=== PATIENT | male | born 1955 | race Caucasian/White ===

== ENCOUNTER 2020-02-07 20:16 | Emergency (ER) | payer OTHER ==
[~2020-02-07] VITALS: Ht 172.7 cm; Wt 78.0 kg
--- NOTE | 2020-02-07 20:55 | NUR ---
UNABLE TO START AN IV LINE ON THE PT DUE TO HARD STICK. DR NEVAREZ MADE AWARE. PER OK TO HOLD ON TO THE HEP LOCK FOR NOW
[2020-02-07] MEDS ORDERED: IV NS 0.9% 1,000 ML IV ONE (21:00)
[2020-02-07] MEDS ORDERED: LIDOCAINE HCL/MPF 1% 30 ML VIAL IJ ONE (21:45)
[2020-02-07] MEDS ORDERED: ONDANSETRON 4 MG TAB.RAPDIS ONE (21:50)
[2020-02-07] MEDS ORDERED: HYDROCODONE/APAP 5/325MG TABLET ONE (21:50)
--- NOTE | 2020-02-07 21:55 | NUR ---
DR NEVAREZ AT BED SIDE FOR LACERATION CARE
[2020-02-07] MEDS ORDERED: HYDROCODONE/APAP 5/325MG TABLET PO ONE (22:00)
[2020-02-07] MEDS ORDERED: LIDOCAINE 1% INJ 50 ML MDV IJ ONE (22:00)
[2020-02-07] MEDS ORDERED: ONDANSETRON 4 MG TAB.RAPDIS SL ONE (22:00)
[2020-02-07] MEDS ORDERED: AMOXICILLIN TRIHYDRATE 500 MG CAPSULE PO ONE (22:30)
[2020-02-07] MEDS ORDERED: BACITRACIN ZINC OINT PACKET 1 EA PACKET TP ONE (22:30)
--- NOTE | 2020-02-07 22:35 | NUR ---
called [facility] for ct read
[2020-02-07] MEDS ORDERED: TDAP [DIPH/PERTUSSIS/TET] 0.5 ML VIAL IM ONE ×2 (22:54→23:00)
[2020-02-07] MEDS ORDERED: AMOXICILLIN TRIHYDRATE 250 MG CAPSULE ONE (22:54)
--- NOTE | 2020-02-08 00:03 | NUR ---
pt is medically stable for D/C. ambulatory w. steady gaits. Patient discharged to home in stable condition. Written and verbal after care instructions given. Patient verbalizes understanding of instruction. pt was provided w/ the CD of all CTs and was instructed to f/u with the ENT specialist he is reffered to.
[2020-02-08 00:15] VITALS: BP 105/72
== END 2020-02-08 00:19 | disposition home or self-care (01) ==
LOC: ER 20:16
DX: S02.2XXA Fracture of nasal bones, initial encounter for closed fracture (principal); S01.21XA Laceration without foreign body of nose, initial encounter; S01.81XA Laceration without foreign body of other part of head, initial encounter; Z98.890 Other specified postprocedural states; W18.09XA Striking against other object with subsequent fall, initial encounter; Y93.89 Activity, other specified; Y92.89 Other specified places as the place of occurrence of the external cause; Y99.8 Other external cause status
CPT/HCPCS: 12014; 36415; 70450; 70486; 72125; 84484; 90471; 90715; 93005; 99285; J3490; J7030; Q0162

== ENCOUNTER 2020-03-04 16:53 | Inpatient (IN) | payer OTHER ==
[~2020-03-04] VITALS: Ht 170.2 cm; Wt 77.1 kg
--- NOTE | 2020-03-04 17:08 | NUR ---
PILAR FROM BOARD AND CARE TO ER BED 10. AWAKE, ALERT BUT INTOXICATED. BROUGHT IN FOR GROUND LEVEL FALL. PER EMS REPORT, PT HAS BEEN DRINKING, WENT TO THE BATHROOM, LEND ON THE GLASS SHOWER DOOR, GLASS BROKE WHILE HE IS LEANING CAUSE A FALL. NOTED LACERATION ON OCCIPITAL AREA, R SHUOLDER, L ANKLE AND L CALF. NOTED ABRASSIONS ON L UPPER EXTREMETY. ALSO NOTED A PURPLISH DISCOLORATION ON L FLANK. DENIES ANY KO. PROVIDER AT BEDSIDE DOING EVAL. AWAITN ORDERS. EMT AT BEDSIDE FOR WOUND CLEANING
[2020-03-04] MEDS ORDERED: FOLI0.4T2 PO (17:09)
[2020-03-04] MEDS ORDERED: PANT40TA2 PO (17:09)
[2020-03-04] MEDS ORDERED: METO25TA20 PO (17:09)
[2020-03-04] MEDS ORDERED: FERR325T23 PO (17:09)
[2020-03-04] MEDS ORDERED: LISI-603 PO (17:09)
[2020-03-04] MEDS ORDERED: MIRT45TA83 PO (17:09)
[2020-03-04] MEDS ORDERED: MULT-594 PO (17:09)
[2020-03-04] MEDS ORDERED: THIA100T70 PO (17:09)
[2020-03-04] MEDS ORDERED: LORA-259 PO (17:09)
[2020-03-04] MEDS ORDERED: LEVE500T9 PO (17:09)
[2020-03-04] MEDS ORDERED: IV NS 0.9% 1,000 ML BAG IV ONE (17:30)
[2020-03-04] MEDS ORDERED: BACITRACIN ZINC OINT PACKET 1 EA PACKET TP ONE ×2 (17:30→17:34)
[2020-03-04 18:10] LABS: HEMOGLOBIN 13.8 g/dL (13.5-17.5); MONOCYTES # (AUTO) 0.4 /CMM (0.1-1.30); MONOCYTES % (AUTO) 3.1 % (2.0-12.0)
[2020-03-04 18:12] LABS: BASOPHILS # (AUTO) 0.1 /CMM (0.0-0.2)
[2020-03-04 18:17] LABS: BASOPHILS % (AUTO) 1.2 % (0.0-2.0); EOSINOPHILS % (AUTO) 0.7 % (0.0-6.0); HEMATOCRIT 43 % (39-51); LYMPHOCYTES # (AUTO) 7.5 /CMM (0.8-4.8); LYMPHOCYTES % (AUTO) 63.6 % (20.0-44.0); MEAN CORPUSCULAR HGB CONC 32 g/dl (31.0-36.0); MEAN CORPUSCULAR VOLUME 88 fL (80-96); NEUTROPHILS # (AUTO) 3.7 /CMM (1.8-8.9); NEUTROPHILS % (AUTO) 31.4 % (43.0-81.0); PLATELET COUNT (AUTO) 295 /CMM (150-450); RED BLOOD CELL COUNT(AUTO) 4.89 MIL/uL (4.5-6.0); WHITE BLOOD COUNT (AUTO) 11.9 K/uL (4.3-11.0)
--- NOTE | 2020-03-04 18:17 | NUR ---
Patient keep removing his neck collor support multiple times .
--- NOTE | 2020-03-04 18:17 | NUR ---
Patient is difficultystick prior to obtained noted bruises to bilateeral arm ,lac to back Right upper back cleanse with saline .
[2020-03-04 18:22] LABS: CALCIUM, SERUM 8.6 mg/dL (8.5-10.1); CREATININE 0.9 mg/dL (0.6-1.3); POTASSIUM 4.4 mmol/L (3.5-5.1)
[2020-03-04 18:33] LABS: ALBUMIN 3.7 g/dL (3.4-5.0); BILIRUBIN,DIRECT 0.2 mg/dL (0.0-0.2); BILIRUBIN,TOTAL 0.4 mg/dL (0.2-1.0); TOTAL PROTEIN, SERUM 8.1 g/dL (6.4-8.2)
--- NOTE | 2020-03-04 19:13 | NUR ---
Provider aware no heplock @ this time .
--- NOTE | 2020-03-04 19:15 | NUR ---
TOOK OVER PT CARE. PT ON MONITOR AND PULSE OX. VSS. PER PREVIOUS NURSE CONCRETE PAVING MACHINE OPERATOR AWARE OF NURSE UNABLE TO START A LINE. WILL CONTINUE TO MONITOR PT.
--- NOTE | 2020-03-04 19:30 | NUR ---
PT REQUESTING TO URINATE. URINAL GIVEN TO PT. VSS.
[2020-03-04 19:41] LABS: EOSINOPHILS % (MANUAL) 1 % (0-4); LYMPHOCYTES % (MANUAL) 50 % (16-48); MONOCYTES % (MANUAL) 4 % (0-11.0); NEUTROPHILS % (MANUAL) 45 (42-76)
--- NOTE | 2020-03-04 20:20 | NUR ---
ATTEMPTED TO AMBULATE PATIENT, UNSTEADY AND UNABLE TO STAND AT THIS TIME. PAOLA GUZMÁN MADE AWARE
--- NOTE | 2020-03-04 23:18 | NUR ---
PT REMAINS IN BED RESTING. VSS.
--- NOTE | 2020-03-04 23:19 | NUR ---
PT REFUSING TYLENOL.
--- NOTE | 2020-03-04 23:21 | NUR ---
Ramesh davon in ED - 03/04/20 at 2325 by DONALD ATTEMPTED TO AMBULATE PT, HE REFUSED, STATED HE GETS TOO DIZZY.
--- NOTE | 2020-03-04 23:25 | NUR ---
ATTEMPTED TO AMBULATE PT, HE REFUSED STATING HE GETS TOO DIZZY.
[2020-03-04] MEDS ORDERED: ACETAMINOPHEN 325 MG TABLET PO ONE (23:30)
--- NOTE | 2020-03-04 23:30 | NUR ---
PATIENT REFUSED TYLENOL MEDICATION.
--- NOTE | 2020-03-04 23:38 | NUR ---
UNABLE TO FIND CONTACT INFORMATION OF PATIENT'S BOARD AND CARE FACILITY
--- NOTE | 2020-03-05 00:08 | NUR ---
ATTEMPTED TO CONTACT PT'S BROTHER (ANH [phone]) NO ANSWER, LEFT MESSAGE.
--- NOTE | 2020-03-05 01:51 | NUR ---
PT RESTING IN BED COMFORTABLY. VSS.
--- NOTE | 2020-03-05 06:23 | NUR ---
PT C/O HEADACHE, AWARE
--- NOTE | 2020-03-05 06:31 | NUR ---
NOTED TACHYCARDIA, MD AWARE
[2020-03-05] MEDS ORDERED: ACETAMINOPHEN ES 500 MG TABLET ONE (06:47)
[2020-03-05] MEDS ORDERED: ACETAMINOPHEN ES 500 MG TABLET PO ONE (07:00)
--- NOTE | 2020-03-05 07:09 | NUR ---
called lab regarding covid swab
[2020-03-05] MEDS ORDERED: LORAZEPAM INJ 2 MG/ML VIAL ONE (07:20)
--- NOTE | 2020-03-05 07:22 | NUR ---
ENDORSEMENT RECEIVED FROM JIMMY DESAI FOR RO. PATIENT IN BED AWAKE, HOOKED TO MONITOR. VSS. WILL CONTINUE TO MONITOR ACCORDINGLY
--- NOTE | 2020-03-05 07:24 | NUR ---
PT HARD STICK PER VERBAL MD ORDER, ADMINISTERED ATIVAN 2MG IM X1 NOW RD
[2020-03-05] MEDS ORDERED: LORAZEPAM INJ 2 MG/ML VIAL IV ONE (07:30)
[2020-03-05] MEDS ORDERED: IV NS 0.9% 1,000 ML BAG IV ONE (07:30)
--- NOTE | 2020-03-05 08:55 | NUR ---
CALLED NURSING SUP FOR TELE BED.
--- NOTE | 2020-03-05 09:53 | NUR ---
ROOM 108
--- NOTE | 2020-03-05 09:58 | NUR ---
REPORT GIVEN TO BREANNA DESAI OF TELE UNIT
--- NOTE | 2020-03-05 10:10 | NUR ---
DR HERRERA AT BEDSIDE
[2020-03-05 11:00] VITALS: BP 154/78
--- NOTE | 2020-03-05 11:00 | NUR ---
RN MS1 PATIENT ADMITTED TO [facility] UNIT PATIENT ALERT AND ORIENTED X4. PATIENT IS AWARE OF WHAT IS GOING ON PATIENT CAME IN FOR ETOH WITHDRAWAL PATENT HAS HX OF FALLS . ON EXTERNAL MONITOR PATIENT A FLUTTER. NO SOB , NO PAIN , NO ACUTE RESPIRATORY DISTRESS AT THIS TIME . PATIENT IS FALL RISK , BED ALARM ON . PATIENT ALSO ALLERGIC TO PEANUTS WITH ALLERGY BAND ION PATIENT . PATIENT HAS BROKEN FACE . PATIENT HAS ABRASIONS ON THE FACE AND ON THE ARMS . PATIENT ON REGULAR DIET. WITH L HAND 22 . PATENT AND IN TACT NO SIGNS OF INFECTION. OR INFILTRATION BED LOCKED LOWEST POSITION CALL LIGHT WITH IN REACH ALL SAFETY MEASURES IMPLEMENTED PER HOSPITAL POLICY
[2020-03-05] MEDS ORDERED: Z GUARD REMEDY 2 OZ OINT TP PRN (11:30)
[2020-03-05] MEDS ORDERED: MAGNESIUM HYDROXIDE 30 ML UDC PO PRN (11:30)
[2020-03-05] MEDS ORDERED: MAG HYDROX/AL HYDROX/SIMETH 30 ML UDC PO PRN (11:30)
[2020-03-05] MEDS ORDERED: ACETAMINOPHEN 325 MG TABLET PO PRN (11:30)
[2020-03-05] MEDS ORDERED: ONDANSETRON HCL/PF 4 MG/2 ML VIAL IVP PRN (11:30)
[2020-03-05 12:00] VITALS: BP 163/80
[2020-03-05] MEDS: IV NS 0.9% 1,000 ML IV SCH ×2 (12:19→23:07)
[2020-03-05] MEDS: ENOXAPARIN SODIUM 40 MG/0.4 ML DISP.SYRIN SQ SCH (12:23)
[2020-03-05] MEDS: CHLORDIAZEPOXIDE HCL 5 MG CAPSULE PO SCH ×2 (13:21→17:32)
[2020-03-05] MEDS: LORAZEPAM INJ 2 MG/ML VIAL IV PRN ×3 (14:01→22:59)
[2020-03-05] MEDS: FERROUS SULFATE (325 MG) 325 MG/TAB TABLET PO SCH (17:32)
[2020-03-05] MEDS: METOPROLOL TARTRATE 25 MG TABLET PO SCH (17:32)
--- NOTE | 2020-03-05 19:01 | NUR ---
RN TELE1 ALERT AND ORIENTED X4. PATIENT IS AWARE OF WHAT IS GOING ON PATIENT CAME IN FOR ETOH WITHDRAWAL PATENT HAS HX OF FALLS . ON EXTERNAL MONITOR PATIENT A FLUTTER. NO SOB , NO PAIN , NO ACUTE RESPIRATORY DISTRESS AT THIS TIME . PATIENT IS FALL RISK , BED ALARM ON . PATIENT ALSO ALLERGIC TO PEANUTS WITH ALLERGY BAND ION PATIENT . PATIENT HAS BROKEN FACE . PATIENT HAS ABRASIONS ON THE FACE AND ON THE ARMS . PATIENT ON REGULAR DIET. WITH L HAND 22 . PATENT AND IN TACT NO SIGNS OF INFECTION. OR INFILTRATION BED LOCKED LOWEST POSITION CALL LIGHT WITH IN REACH ALL SAFETY MEASURES IMPLEMENTED PER HOSPITAL POLICY
[2020-03-05 20:00] VITALS: BP 138/89
--- NOTE | 2020-03-05 20:23 | NUR ---
TELE/RN RECEIVED PATIENT AWAKE, ALERT, ORIENTED, COMFORTABLE, NO C/O PAIN, NO DISTRESS NOTED, FALL AND SEIZURE PRECAUTIONS PER PROTOCOL, CALL LIGHT IN REACH, NEEDS ATTENDED, WILL MONITOR.
--- NOTE | 2020-03-05 23:04 | NUR ---
TELE/RN PATIENT IS ANXIOUS AND VERBALIZED BEING ANXIOUS WELL, ATIVAN 1 MG IVP WAS GIVEN ORDERED. WILL MONITOR.
[2020-03-06] VITALS: BP 133/78
--- NOTE | 2020-03-06 03:47 | NUR ---
TELE/RN PATIENT IS SLEEPING AT THIS TIME, APPEAR COMFORTABLE, NO SIGNS OF DISTRESS NOTED, CALL LIGHT IN REACH, WILL CONTINUE TO MONITOR.
[2020-03-06 04:00] VITALS: BP 131/70
[2020-03-06] MEDS: LORAZEPAM INJ 2 MG/ML VIAL IV PRN (04:14)
--- NOTE | 2020-03-06 04:18 | NUR ---
TELE/RN PATIENT IS AWAKE, ANXIOUS, GETTING OUT OF BED WITHOUT CALLING FOR HELP, VERY HIGH FALL RISK, ATIVAN 1 MG IV WAS GIVEN ORDERED. WILL MONITOR.
--- NOTE | 2020-03-06 05:58 | NUR ---
TELE/RN C/O PAIN IN IV SITE, REMOVED IV, ATTEMPTED TO INSERT IN RT. HAND BUT UNSUCCESSFUL. STRUCTURAL STEEL WORKER HELPER UNABLE TO DRAW BLOOD WELL DUE TO HARD STICK. PATIENT IS AWAKE, ALERT, ORIENTED, CALM AND COMFORTABLE, ALL NEEDS ATTENDED AT THIS TIME, WILL CONTINUE TO MONITOR.
[2020-03-06] MEDS ORDERED: PANTOPRAZOLE 40 MG TABLET.DR PO SCH (07:30)
[2020-03-06] MEDS: IV NS 0.9% 1,000 ML IV SCH (07:30)
--- NOTE | 2020-03-06 07:30 | NUR ---
RN OPENING NOTE PATIENT IS AWAKE IN BED. PATIENT ALERT AND ORIENTED X4. ETOH WITHDRAWAL PATENT HAS HX OF FALLS . NO ACUTE RESPIRATORY DISTRESS OR SOB NOTED . PT HAS NO IV ACCESS AT THIS TIME. SAFETY MEASUREMENTS ARE IMPLEMENTED PER HOSPITAL POLICY. BED LOCKED LOWEST POSITION CALL LIGHT WITH IN REACH AND SIDE RAILS ARE UP X2.WILL CONTINUE TO MONITOR
[2020-03-06 07:44] LABS: CALCIUM, SERUM 8.8 mg/dL (8.5-10.1); CREATININE 0.7 mg/dL (0.6-1.3); MAGNESIUM 2.3 mg/dL (1.8-2.4); PHOSPHORUS 2.7 mg/dL (2.5-4.9); POTASSIUM 4.4 mmol/L (3.5-5.1)
[2020-03-06] MEDS: PANTOPRAZOLE 40 MG TABLET.DR PO SCH (07:50)
[2020-03-06 08:00] VITALS: BP 138/78
--- NOTE | 2020-03-06 08:09 | NUR ---
RN NOTES NO IV ACCESS WAITING FOR DR ORDER FOR MIDLINE. VERY HARD STICK
[2020-03-06] MEDS: THIAMINE HCL 100 MG TABLET PO SCH (08:19)
[2020-03-06] MEDS: FOLIC ACID 1 MG TABLET PO SCH (08:19)
[2020-03-06] MEDS: MULTIVITAMINS,THERAGRAN 1 UDTAB TABLET PO SCH (08:19)
[2020-03-06] MEDS: FERROUS SULFATE (325 MG) 325 MG/TAB TABLET PO SCH ×2 (08:19→16:16)
[2020-03-06] MEDS: METOPROLOL TARTRATE 25 MG TABLET PO SCH ×2 (08:20→16:16)
[2020-03-06] MEDS: ENOXAPARIN SODIUM 40 MG/0.4 ML DISP.SYRIN SQ SCH (08:21)
[2020-03-06] MEDS: CHLORDIAZEPOXIDE HCL 5 MG CAPSULE PO SCH ×2 (08:24→12:12)
[2020-03-06] MEDS ORDERED: Medication Not On Formulary EA (Multivitamins (Multivitamin) 1 EACH) PO SCH (09:00)
[2020-03-06] MEDS: LORAZEPAM 1 MG TABLET PO PRN ×2 (12:40→20:40)
--- NOTE | 2020-03-06 12:42 | NUR ---
RN NOTES PT IS ANXIOUS DR PANDA ORDERED ATIVAN PO. ADMINISTERED ATIVAN 1 MG
--- NOTE | 2020-03-06 12:47 | NUR ---
RN NOTES PT REFUSED SCD COMPRESSORS STATED HE IS FINE
[2020-03-06 15:46] LABS: BASOPHILS # (AUTO) 0.1 /CMM (0.0-0.2); EOSINOPHILS % (AUTO) 1.7 % (0.0-6.0); HEMATOCRIT 36 % (39-51); LYMPHOCYTES # (AUTO) 1.8 /CMM (0.8-4.8); LYMPHOCYTES % (AUTO) 38.7 % (20.0-44.0); MEAN CORPUSCULAR HGB CONC 33 g/dl (31.0-36.0); MEAN CORPUSCULAR VOLUME 86 fL (80-96); MONOCYTES # (AUTO) 0.4 /CMM (0.1-1.30); MONOCYTES % (AUTO) 8.4 % (2.0-12.0); NEUTROPHILS # (AUTO) 2.3 /CMM (1.8-8.9); NEUTROPHILS % (AUTO) 49.2 % (43.0-81.0); PLATELET COUNT (AUTO) 169 /CMM (150-450); RED BLOOD CELL COUNT(AUTO) 4.21 MIL/uL (4.5-6.0); WHITE BLOOD COUNT (AUTO) 4.7 K/uL (4.3-11.0)
--- NOTE | 2020-03-06 15:54 | NUR ---
RN NOTES PT HAS NO S/S OF RESPIRATORY DISTRESS OR SOB .
[2020-03-06 16:00] VITALS: BP 138/78
[2020-03-06] MEDS ORDERED: LORAZEPAM 1 MG TABLET PO STA (18:41)
--- NOTE | 2020-03-06 18:44 | NUR ---
RN NOTES PT IS VERY ANXIOUS PACING BACK AND FORTH. INFORMED DR PANDA. ORDERED VERBAL ORDER ONCE ATIVAN 1 MG POWAITING FOR VERIFICATION
--- NOTE | 2020-03-06 18:50 | NUR ---
RN CLOSING NOTE PATIENT IS AWAKE IN BED. PATIENT ALERT AND ORIENTED X4. ETOH WITHDRAWAL PATENT HAS HX OF FALLS . NO ACUTE RESPIRATORY DISTRESS OR SOB NOTED . PT HAS NO IV ACCESS AT THIS TIME.WILL BE DC TOMORROW SAFETY MEASUREMENTS ARE IMPLEMENTED PER HOSPITAL POLICY. BED LOCKED AND IN THE LOWEST POSITION .CALL LIGHT WITH IN REACH AND SIDE RAILS ARE UP X2.WILL ENDORSE TO PM NURSE FOR RO
[2020-03-06 20:00] VITALS: BP 142/78
--- NOTE | 2020-03-07 00:34 | NUR ---
MS-1/TANK HOUSE OPERATOR HELPER PT SLIGHTLY CONFUSED ATTEMPTS TO LEAVE HIS ROOM. REORIENTED TO PLACE TIME AND SITUATION. PT VERBALIZED UNDERSTANDING. PLACED BACK IN BED CALL LIGHT WITHIN REACH WILL CONTINUE TO MONITOR.
[2020-03-07 04:00] VITALS: BP 153/78
--- NOTE | 2020-03-07 05:35 | NUR ---
MS-1/BROADCAST DESIGNER PT REFUSING LAB DRAW. EDUCATED PT ON IMPORTANCE OF DAILY LABS. PT STILL REFUSING. WILL ENDORSE TO AM SHIFT.
--- NOTE | 2020-03-07 07:30 | NUR ---
RN OPENING NOTE PT AWAKE AND LYING IN BED, A/Ox2, BREATHING UNLABORED AND EVEN ON RA, NO SIGNS OF RESP DISTRESS OR SOB. PT IS AMBULATORY NO ASSIST. PT HAS MULTPILE SCRATCHES TO FACE AND NOSE, LT ARM. PT DOES NOT HAVE IV ACCESS. PT REFUSED MORNING LABS. PT SAFETY PRECAUTIONS IN PLACE- BED LOCKED AND IN LOWEST POSITION, CALL LIGHT WITHIN REACH, SR UP x2. WILL CONTINUE TO MONITOR.
[2020-03-07 08:00] VITALS: BP_SYST 132; BP_SYST 134; BP_SYST 180; BP_DIAS 66; BP_DIAS 72; BP_DIAS 73
[2020-03-07] MEDS: FERROUS SULFATE (325 MG) 325 MG/TAB TABLET PO SCH (08:37)
[2020-03-07] MEDS: THIAMINE HCL 100 MG TABLET PO SCH (08:37)
[2020-03-07] MEDS: LORAZEPAM 1 MG TABLET PO PRN (08:37)
[2020-03-07] MEDS: PANTOPRAZOLE 40 MG TABLET.DR PO SCH (08:37)
[2020-03-07] MEDS: FOLIC ACID 1 MG TABLET PO SCH (08:37)
[2020-03-07] MEDS: MULTIVITAMINS,THERAGRAN 1 UDTAB TABLET PO SCH (08:38)
[2020-03-07] MEDS: ENOXAPARIN SODIUM 40 MG/0.4 ML DISP.SYRIN SQ SCH (08:39)
[2020-03-07] MEDS: METOPROLOL TARTRATE 25 MG TABLET PO SCH (08:56)
[2020-03-07 08:57] VITALS: BP 132/72
[2020-03-07 09:42] LABS: CALCIUM, SERUM 9.2 mg/dL (8.5-10.1); CREATININE 0.9 mg/dL (0.6-1.3); MAGNESIUM 1.7 mg/dL (1.8-2.4); POTASSIUM 3.5 mmol/L (3.5-5.1)
--- NOTE | 2020-03-07 13:56 | NUR ---
LLOYD Engle informed this SW regarding patient's change in discharge plan. SW in communication with case management team assisting in a safe and proper discharge regarding this patient.
--- NOTE | 2020-03-07 14:30 | NUR ---
RN NOTE SPOKE WITH PT'S BROTHER CYNTHIA REGARDING WHERE PT WILL BE DISCHARGED TO. BROTHER IS NOW AWARE
--- NOTE | 2020-03-07 15:30 | NUR ---
MS RN NOTES PATIENT DISCHARGED TO BOARD AND CARE. DISCHARGE EDUCATIONS PROVIDED, VERBALIZED UNDERSTANDING. DISCHARGE PROTOCOL FOLLOWED. ALL BELONGINGS ACCOUNTED FOR. BELONGING LIST SIGNED. ID BAND REMOVED. PATIENTS BROTHER MADE AWARE OF PATIENTS DISCHARGE. PATIENT PROVIDED WITH TAXI. ESCORTED TO TAXI.
== END 2020-03-07 15:30 | disposition home or self-care (01) | DRG 201 ==
LOC: ER 16:57 → TELE1 03-05 09:55 → MEDSG1 03-06 12:42
PROVIDERS: ADMIT Internal Medicine; ATTEND Internal Medicine
DX: I48.0 Paroxysmal atrial fibrillation (principal); F10.239 Alcohol dependence with withdrawal, unspecified; F10.229 Alcohol dependence with intoxication, unspecified; Y90.9 Presence of alcohol in blood, level not specified; J44.9 Chronic obstructive pulmonary disease, unspecified; I10 Essential (primary) hypertension; E87.2 Acidosis; J32.0 Chronic maxillary sinusitis; E87.1 Hypo-osmolality and hyponatremia; S00.83XA Contusion of other part of head, initial encounter; S00.81XA Abrasion of other part of head, initial encounter; S40.211A Abrasion of right shoulder, initial encounter; S90.512A Abrasion, left ankle, initial encounter; S80.812A Abrasion, left lower leg, initial encounter; W18.39XA Other fall on same level, initial encounter; Y93.E1 Activity, personal bathing and showering; Y92.091 Bathroom in other non-institutional residence as the place of occurrence of the external cause; S02.2XXD Fracture of nasal bones, subsequent encounter for fracture with routine healing; W19.XXXD Unspecified fall, subsequent encounter; R29.6 Repeated falls; G62.9 Polyneuropathy, unspecified; Z79.899 Other long term (current) drug therapy
CPT/HCPCS: 36415; 70450-TC; 71045-TC; 72125-TC; 73610-TC; 80048-TC; 80076-TC; 83690-TC; 83735-TC; 84100-TC; 84484-TC; 85025-TC; 87081-TC; 93307-TC; A6403; C9803; G0378; J1650; J2060; J7030; L0172

== ENCOUNTER 2020-03-17 03:11 | Inpatient (IN) | payer OTHER ==
[~2020-03-17] VITALS: Ht 172.7 cm; Wt 73.5 kg
[~2020-03-17 03:11] MED LIST: FERR325T23 PO; FOLI0.4T2 PO; LEVE500T9 PO; LISI-603 PO; LORA-259 PO; METO25TA20 PO; MIRT45TA83 PO; MULT-594 PO; PANT40TA2 PO; THIA100T70 PO
--- NOTE | 2020-03-17 03:18 | NUR ---
PATIENT CAME TO ER BED 3 BIB RA C/O MIDSTERNAL CHEST PAIN THAT OCCURRED 1x HOUR PRINTING SUPPLIES SALES REPRESENTATIVE. PATIENT IS AAOX4, RECEIVED 324 MG OF ASPIRIN IN THE FIELD WITH 2x SPRAYS OF NITRO SPRAY. PATIENT STATES THAT HE DRANK 1 BOTTLE OF WHITE WINE IN THE MORNING. PATIENT IS BREATHING EVENLY AND UNLABORED ON ROOM AIR. CONNECTED TO THE MONITOR. PATIENT IS KEPT COMFORTABLE. WILL CONTINUE TO MONITOR.
--- NOTE | 2020-03-17 03:24 | NUR ---
ADDRESS [address] [place], [place] [id number]
[2020-03-17] MEDS ORDERED: IV NS 0.9% 1,000 ML BAG IV ONE (03:30)
[2020-03-17] MEDS ORDERED: ONDANSETRON HCL/PF 4 MG/2 ML VIAL IVP ONE (03:30)
[2020-03-17] MEDS ORDERED: LORAZEPAM INJ 2 MG/ML VIAL IV ONE ×2 (03:30→06:30)
[2020-03-17] MEDS ORDERED: LORAZEPAM INJ 2 MG/ML VIAL ONE ×2 (03:47→06:10)
[2020-03-17] MEDS ORDERED: ONDANSETRON HCL/PF 4 MG/2 ML VIAL ONE (03:47)
[2020-03-17 04:37] LABS: BASOPHILS # (AUTO) 0.1 /CMM (0.0-0.2); BASOPHILS % (AUTO) 0.7 % (0.0-2.0); EOSINOPHILS % (AUTO) 0.9 % (0.0-6.0); HEMATOCRIT 47 % (39-51); HEMOGLOBIN 15.3 g/dL (13.5-17.5); LYMPHOCYTES # (AUTO) 1.3 /CMM (0.8-4.8); LYMPHOCYTES % (AUTO) 16.3 % (20.0-44.0); MEAN CORPUSCULAR HGB CONC 33 g/dl (31.0-36.0); MEAN CORPUSCULAR VOLUME 89 fL (80-96); MONOCYTES # (AUTO) 0.3 /CMM (0.1-1.30); MONOCYTES % (AUTO) 4.4 % (2.0-12.0); NEUTROPHILS % (AUTO) 77.7 % (43.0-81.0); PLATELET COUNT (AUTO) 236 /CMM (150-450); RED BLOOD CELL COUNT(AUTO) 5.22 MIL/uL (4.5-6.0); WHITE BLOOD COUNT (AUTO) 7.7 K/uL (4.3-11.0)
--- NOTE | 2020-03-17 04:37 | NUR ---
CALLED LAB REGARDING COVID SWABS
[2020-03-17 04:38] LABS: CALCIUM, SERUM 9.4 mg/dL (8.5-10.1); CARBON DIOXIDE 24 mmol/L (21-32); CHLORIDE 100 mmol/L (98-107); CREATININE 1.1 mg/dL (0.6-1.3); GLUCOSE 118 mg/dL (74-106); POTASSIUM 4.7 mmol/L (3.5-5.1); SODIUM SERUM 142 mmol/L (136-145); UREA NITROGEN, BLOOD 14 mg/dL (7-18)
[2020-03-17 04:44] LABS: ALANINE AMINOTRANSFERASE 27 U/L (12-78); ALBUMIN 4.2 g/dL (3.4-5.0); ALKALINE PHOSPHATASE 143 U/L (46-116); ASPARTATE AMINOTRANSFERASE 47 U/L (15-37); BILIRUBIN,DIRECT 0.4 mg/dL (0.0-0.2); BILIRUBIN,TOTAL 0.8 mg/dL (0.2-1.0)
--- NOTE | 2020-03-17 05:00 | NUR ---
move packet given to admiting
--- NOTE | 2020-03-17 05:05 | NUR ---
COVID SWAB COLLECTED AND SENT TO THE LAB.
--- NOTE | 2020-03-17 05:12 | NUR ---
LLOYD Yang speaking to CM Anamaria from [facility].
[2020-03-17 05:42] LABS: LYMPHOCYTES % (MANUAL) 16 % (16-48); MONOCYTES % (MANUAL) 2 % (0-11.0); NEUTROPHILS % (MANUAL) 82 (42-76)
--- NOTE | 2020-03-17 05:43 | NUR ---
called [facility] for panel admission.
--- NOTE | 2020-03-17 06:00 | NUR ---
2nd call; [facility] for panel admission for dr. fallon.
--- NOTE | 2020-03-17 06:00 | NUR ---
called Rn Sup for tele bed
--- NOTE | 2020-03-17 06:13 | NUR ---
PATIENT'S HEART RATE IS 146, MD IS NOTIFIED.
--- NOTE | 2020-03-17 06:14 | NUR ---
MD VERBAL ORDER OF 2MG ATIVAN IVP. WILL MEDICATE ORDERED.
--- NOTE | 2020-03-17 06:15 | NUR ---
PATIENT IS MEDICATED ORDERED.
--- NOTE | 2020-03-17 06:30 | NUR ---
received call from panel, aware dr. fallon has not called back. paged a 3rd time.
[2020-03-17] MEDS ORDERED: LABETALOL HCL IV 100MG VIAL ONE (06:44)
--- NOTE | 2020-03-17 06:46 | NUR ---
PATIENT'S HR IS 151, MD IS NOTIFIED.
--- NOTE | 2020-03-17 06:47 | NUR ---
Dr. Burgos speaking to Dr. Marie regarding plan of care.
--- NOTE | 2020-03-17 06:47 | NUR ---
MD ORDERED TO GIVE LABETALOL 10MG IV. WILL MEDICATE ORDERED.
--- NOTE | 2020-03-17 06:48 | NUR ---
PATIENT IS MEDICATED ORDERED.
[2020-03-17] MEDS ORDERED: MAGNESIUM HYDROXIDE 30 ML UDC PO PRN (07:00)
[2020-03-17] MEDS ORDERED: ZOLPIDEM TARTRATE 5 MG TABLET PO PRN (07:00)
[2020-03-17] MEDS ORDERED: Z GUARD REMEDY 2 OZ OINT TP PRN (07:00)
[2020-03-17] MEDS ORDERED: ONDANSETRON HCL/PF 4 MG/2 ML VIAL IVP PRN (07:00)
[2020-03-17] MEDS ORDERED: ACETAMINOPHEN 325 MG TABLET PO PRN (07:00)
[2020-03-17] MEDS ORDERED: LABETALOL 20 MG/4 ML VIAL IV ONE (07:00)
[2020-03-17] MEDS ORDERED: MAG HYDROX/AL HYDROX/SIMETH 30 ML UDC PO PRN (07:00)
--- NOTE | 2020-03-17 07:56 | NUR ---
REPORT GIVEN TO JAMARI DESAI FOR RO.
[2020-03-17 09:05] VITALS: BP 143/88
--- NOTE | 2020-03-17 09:05 | NUR ---
RN NOTES RECEIVED PT FROM ER VIA ANJALI. REPORT GIVEN BY JERRY DESAI. PT ON ROOM AIR SATURATING @96%. A/O X4. AMBULATORY. CARDIAC DIET. L FA #20 INTACT, PATENT AND FLUSHED. SKIN IS INTACT. PLACED IN BED. BED LOCKED AND AT LOWEST POSITION WITH SIDE RAILS UP X2. CALL LIGHT WITHIN REACH. WILL CONTINUE TO MONITOR
[2020-03-17] MEDS: FERROUS SULFATE (325 MG) 325 MG/TAB TABLET PO SCH ×2 (10:39→17:10)
[2020-03-17] MEDS: MULTIVITAMINS,THERAGRAN 1 UDTAB TABLET PO SCH (10:39)
[2020-03-17] MEDS: FOLIC ACID 1 MG TABLET PO SCH (10:39)
[2020-03-17] MEDS: METOPROLOL TARTRATE 25 MG TABLET PO SCH ×2 (10:40→17:10)
[2020-03-17] MEDS: LEVETIRACETAM (250 MG) 250 MG TABLET PO SCH ×2 (10:40→17:10)
[2020-03-17] MEDS: PANTOPRAZOLE 40 MG TABLET.DR PO SCH (10:40)
[2020-03-17] MEDS: LISINOPRIL (20MG) 20 MG TABLET PO SCH (10:40)
[2020-03-17] MEDS: CYANOCOBALAMIN 100 MCG TABLET PO SCH (10:41)
[2020-03-17 12:00] VITALS: BP 133/82
[2020-03-17] MEDS: LORAZEPAM 1 MG TABLET PO PRN ×2 (12:27→21:04)
[2020-03-17 16:00] VITALS: BP 119/63
[2020-03-17] MEDS: MORPHINE SULFATE INJ 2 MG/ML DISP.SYRIN IV PRN (17:12)
--- NOTE | 2020-03-17 19:15 | NUR ---
RN NOTE PT AWAKE AND ALERT/ORIENTED X 4 IN BED IN SEMI MARTINEZ'S POSITION. CURRENTLY ON ROOM AIR, RESPIRATIONS EVEN AND UNLABORED. WITH COMPLAINT OF 4/10 GEN BODY PAIN AND MINOR NAUSEA. WILL ADMINISTER PRN MEDICATION ORDERED. SR ON THE TELE MONITOR, IV LINE FLUSHED AND PATENT. CALL LIGHT WITHIN REACH, SAFETY MEASURES IMPLEMENTED PER PROTOCOL, BED LOCKED AND IN LOW POSITION, SIDE RIALS UP X 2, URINAL AT BEDSIDE REACHABLE, WILL MONITOR PATIENT.
--- NOTE | 2020-03-17 19:20 | NUR ---
RN CLOSING NOTES PT RESTING IN BED, A/O X4. ON ROOM AIR SATURATING @96%. AMBULATORY. CARDIAC DIET. L FA #20 INTACT, PATENT AND FLUSHED. SKIN IS INTACT. COMPLAINS OF HICCUPS. INFORMED DR. HERRERA STILL WAITING FOR ORDERS. CHARGE NURSE AWARE. SAFETY MEASURES IN PLACE. BED LOCKED AND AT LOWEST POSITION WITH SIDE RAILS UP X2. CALL LIGHT WITHIN REACH. WILL ENDORSE TO NIGHT NURSE FOR RO
[2020-03-17] MEDS: HYDROCODONE/APAP 5/325MG TABLET PO PRN (19:58)
[2020-03-17 20:00] VITALS: BP 129/61
[2020-03-17] MEDS: MIRTAZAPINE 45 MG TABLET PO SCH (21:05)
[2020-03-18] VITALS: BP 132/68
--- NOTE | 2020-03-18 00:52 | NUR ---
RN NOTE NOTED CHART TO BE WITHOUT SIGNED HISTORY AND PHYSICAL. NOTED THAT DR. HERRERA ENTERED IN ADMITTING ORDERS YESTERDAY. NOTIFIED DR. HERRERA THAT THERE IS NO H&P. MD STATES THAT HE IS NOT THE ADMITTING DR.
--- NOTE | 2020-03-18 02:00 | NUR ---
RN NOTE PT SLEEPING IN BED COMFORTABLY WITHOUT SIGNS OF PAIN, DISCOMFORT, OR DISTRESS.
[2020-03-18] MEDS: MORPHINE SULFATE INJ 2 MG/ML DISP.SYRIN IV PRN ×2 (03:14→18:48)
[2020-03-18 04:00] VITALS: BP 124/56
--- NOTE | 2020-03-18 04:00 | NUR ---
RN NOTE PT REFUSED PARTIAL BED BATH. ALSO REFUSED TO PUT ON PT GOWN.
[2020-03-18] MEDS: LORAZEPAM 1 MG TABLET PO PRN ×3 (05:34→22:55)
--- NOTE | 2020-03-18 06:52 | NUR ---
RN NOTE NO ACUTE CHANGES OBSERVED OVERNIGHT. PT AWAKE AND ALERT/ORIENTED X 3 IN BED IN SEMI MARTINEZ'S POSITION. CURRENTLY ON ROOM AIR, RESPIRATIONS EVEN AND UNLABORED. NO SIGNS OF PAIN OR DISCOMFORT. SR ON THE TELE MONITOR, IV LINE FLUSHED AND PATENT. CALL LIGHT WITHIN REACH, SAFETY MEASURES IMPLEMENTED PER PROTOCOL, BED LOCKED AND IN LOW POSITION, SIDE RIALS UP X 2, URINAL AT BEDSIDE REACHABLE, WILL ENDORSE TO MORNING RN FOR RO.
[2020-03-18 06:58] LABS: EOSINOPHILS % (AUTO) 1.6 % (0.0-6.0); HEMATOCRIT 35 % (39-51); HEMOGLOBIN 11.8 g/dL (13.5-17.5); LYMPHOCYTES # (AUTO) 1.9 /CMM (0.8-4.8); LYMPHOCYTES % (AUTO) 41.4 % (20.0-44.0); MEAN CORPUSCULAR HGB CONC 33 g/dl (31.0-36.0); MEAN CORPUSCULAR VOLUME 88 fL (80-96); MONOCYTES # (AUTO) 0.4 /CMM (0.1-1.30); MONOCYTES % (AUTO) 7.6 % (2.0-12.0); NEUTROPHILS # (AUTO) 2.3 /CMM (1.8-8.9); NEUTROPHILS % (AUTO) 48.4 % (43.0-81.0); PLATELET COUNT (AUTO) 131 /CMM (150-450); RED BLOOD CELL COUNT(AUTO) 4.02 MIL/uL (4.5-6.0); WHITE BLOOD COUNT (AUTO) 4.7 K/uL (4.3-11.0)
--- NOTE | 2020-03-18 07:15 | NUR ---
RN OPENING NOTES RECEIVED PT AWAKE, A/O X4. ON ROOM AIR SATURATING @96%. AMBULATORY. CARDIAC DIET. L FA #20 INTACT, PATENT AND FLUSHED. SKIN IS INTACT. NO COMPLAINS OF PAIN AT THIS TIME. SAFETY MEASURES IN PLACE. BED LOCKED AND AT LOWEST POSITION WITH SIDE RAILS UP X2. CALL LIGHT WITHIN REACH. WILL CONTINUE TO MONITOR
[2020-03-18 07:31] LABS: CALCIUM, SERUM 8.8 mg/dL (8.5-10.1); MAGNESIUM 1.8 mg/dL (1.8-2.4); PHOSPHORUS 2.6 mg/dL (2.5-4.9); POTASSIUM 3.7 mmol/L (3.5-5.1)
[2020-03-18 08:00] VITALS: BP 112/62
[2020-03-18] MEDS: METOPROLOL TARTRATE 25 MG TABLET PO SCH ×2 (09:00→17:00)
[2020-03-18] MEDS: LISINOPRIL (20MG) 20 MG TABLET PO SCH (09:00)
--- NOTE | 2020-03-18 09:00 | NUR ---
RN NOTES LOW BP. LOPRESSOR AND PRINIVIL ON HOLD AT THIS TIME. WILL RECHECK BP. CHARGE NURSE AWARE
[2020-03-18] MEDS: CYANOCOBALAMIN 100 MCG TABLET PO SCH (09:16)
[2020-03-18] MEDS: MULTIVITAMINS,THERAGRAN 1 UDTAB TABLET PO SCH (09:16)
[2020-03-18] MEDS: FERROUS SULFATE (325 MG) 325 MG/TAB TABLET PO SCH ×2 (09:16→17:00)
[2020-03-18] MEDS: LEVETIRACETAM (250 MG) 250 MG TABLET PO SCH ×2 (09:17→17:00)
[2020-03-18] MEDS: PANTOPRAZOLE 40 MG TABLET.DR PO SCH (09:17)
[2020-03-18] MEDS: FOLIC ACID 1 MG TABLET PO SCH (09:17)
[2020-03-18 12:00] VITALS: BP 124/61
[2020-03-18] MEDS ORDERED: THIAMINE HCL 100 MG TABLET PO ONE (12:30)
--- NOTE | 2020-03-18 13:50 | NUR ---
c/o anxious requested ativan 2mg po medicated as ordered will continue to assess and evaluate call light with in reach
--- NOTE | 2020-03-18 15:50 | NUR ---
RN NOTES PT PCR RESULT NEGATIVE. PT IS TRANSFERRED TO . REPORT GIVEN TO JAJA DESAI. PT IN STABLE CONDITION, NO PAIN REPORTED AT THIS TIME. VS WNL.
[2020-03-18 16:00] VITALS: BP 127/74
--- NOTE | 2020-03-18 16:20 | NUR ---
VP PUBLIC RELATIONS NOTES RECEIVED BEDSIDE REPORT FROM LLOYD PARDO. PATIENT TRANSFERRED TO CLEAN UNIT FROM [facility]. ORIENTED PATIENT TO ROOM, UNIT AND CALL LIGHT.REMAIN ON TELE MONITORING: SR. PATIENT DENIES ANY C/O PAIN NOR DISCOMFORT AT THIS TIME. RESTING COMFORTABLY IN BED.
--- NOTE | 2020-03-18 19:02 | NUR ---
RESEARCH MICROBIOLOGIST NOTES PATIENT RESTING COMFORTABLY IN BED WATCHING TV. HOB ELEVATED. ON ROOM AIR WITHOUT S/S OF RESPIRATORY DISTRESS. PATIENT VERBALIZES WITH EPISODES OF ANXIETY BUT CALM AT THIS TIME. LEFT FA # 20 INTACT AND PATENT. BED IN LOWEST POSITION ,LOCKED. BED ALARM ON. CALL LIGHT WITHIN REACH. IN NO APPARENT DISTRESS.
--- NOTE | 2020-03-18 19:30 | NUR ---
TELE/RN OPENING NOTES RECEIVED PATIENT IN BED RESTING WATCHING TV. PATIENT IS ALERT AND ORIENTED X 4. PATIENT IS TOLERATING ROOM AIR WELL, NO SIGNS OF SOB OR RESPIRATORY DISTRESS NOTED. BREATHING IS EVEN AND UNLABORED. TELE READING SR 74. PATIENT HAS IV ACCESS ON LEFT FOREARM #20 [address] FLUSHING WELL. PATIENT IN NO DISTRESS OF DISTRESS. SAFETY MEASURES ARE IN PLACE, BED IS LOCKED AND PLACED IN THE LOW POSITION, SIDE RAILS UP X 2, CALL LIGHT IS WITHIN REACH. WILL CONTINUE TO MONITOR THROUGH OUT SHIFT.
[2020-03-18 20:00] VITALS: BP 130/66
[2020-03-18] MEDS: HYDROCODONE/APAP 5/325MG TABLET PO PRN (20:47)
--- NOTE | 2020-03-18 20:47 | NUR ---
TELE/RN NOTES PATIENT REQUESTING PAIN MEDICATION, GENERALIZED PAIN. NORCO 5 MG PO GIVEN. VITAL SIGNS ARE STABLE.
[2020-03-18] MEDS: MIRTAZAPINE 45 MG TABLET PO SCH (21:57)
--- NOTE | 2020-03-18 22:55 | NUR ---
TELE/RN NOTES PATIENT REQUESTING FOR ATIVAN, STATES WOULD LIKE TO SLEEP AT THIS TIME. ATIVAN 2 MG PO GIVEN. VITAL SIGNS WITHIN NORMAL LIMITS.
[2020-03-19] VITALS: BP 111/52
[2020-03-19] MEDS: HYDROCODONE/APAP 5/325MG TABLET PO PRN ×2 (02:45→09:59)
--- NOTE | 2020-03-19 02:45 | NUR ---
TELE/RN NOTES PATIENT REQUESTING FOR PAIN MEDICATION, GENERALIZED PAIN. NORCO 5 MG PO GIVEN. VITAL SIGNS ARE STABLE.
--- NOTE | 2020-03-19 06:50 | NUR ---
TELE/RN CLOSING NOTES PATIENT IN BED RESTING. PATIENT IS ALERT AND ORIENTED X 4. PATIENT IS TOLERATING ROOM AIR WELL, NO SIGNS OF SOB OR RESPIRATORY DISTRESS NOTED. BREATHING IS EVEN AND UNLABORED. TELE READING SR 76. PATIENT HAS IV ACCESS ON LEFT FOREARM #20 G SL FLUSHING WELL. PATIENT IN NO DISTRESS OF DISTRESS. SAFETY MEASURES ARE IN PLACE, BED IS LOCKED AND PLACED IN THE LOW POSITION, SIDE RAILS UP X 2, CALL LIGHT IS WITHIN REACH. WILL ENDORSE CARE TO DAY SHIFT.
[2020-03-19] MEDS: PANTOPRAZOLE 40 MG TABLET.DR PO SCH (07:36)
[2020-03-19] MEDS: LORAZEPAM 1 MG TABLET PO PRN ×2 (07:36→15:30)
[2020-03-19] MEDS: MORPHINE SULFATE INJ 2 MG/ML DISP.SYRIN IV PRN ×2 (07:44→13:41)
--- NOTE | 2020-03-19 07:45 | NUR ---
RN NOTES PT C/O ACHING CHEST PAIN, PRN MORPHINE 2MG/ML ADMINISTERED IVP ORDERED. WILL CONTINUE TO MONITOR.
[2020-03-19 08:00] VITALS: BP 150/72
--- NOTE | 2020-03-19 08:00 | NUR ---
tele consulting psychiatrist: initial assessment received pt in bed awake, a/ox4. tele sr. no distress noted. will continue to monitor.
[2020-03-19] MEDS: LEVETIRACETAM (250 MG) 250 MG TABLET PO SCH (08:32)
[2020-03-19] MEDS: LISINOPRIL (20MG) 20 MG TABLET PO SCH (08:32)
[2020-03-19] MEDS: FOLIC ACID 1 MG TABLET PO SCH (08:33)
[2020-03-19] MEDS: MULTIVITAMINS,THERAGRAN 1 UDTAB TABLET PO SCH (08:33)
[2020-03-19] MEDS: METOPROLOL TARTRATE 25 MG TABLET PO SCH (08:33)
[2020-03-19] MEDS: FERROUS SULFATE (325 MG) 325 MG/TAB TABLET PO SCH (08:33)
[2020-03-19] MEDS ORDERED: THIAMINE HCL 100 MG TABLET PO SCH (09:00)
[2020-03-19 09:11] LABS: BASOPHILS % (AUTO) 0.7 % (0.0-2.0); EOSINOPHILS % (AUTO) 3.3 % (0.0-6.0); HEMATOCRIT 40 % (39-51); HEMOGLOBIN 13.3 g/dL (13.5-17.5); LYMPHOCYTES # (AUTO) 1.6 /CMM (0.8-4.8); LYMPHOCYTES % (AUTO) 34.4 % (20.0-44.0); MEAN CORPUSCULAR HGB CONC 33 g/dl (31.0-36.0); MEAN CORPUSCULAR VOLUME 89 fL (80-96); MONOCYTES # (AUTO) 0.3 /CMM (0.1-1.30); MONOCYTES % (AUTO) 7.5 % (2.0-12.0); NEUTROPHILS # (AUTO) 2.5 /CMM (1.8-8.9); NEUTROPHILS % (AUTO) 54.1 % (43.0-81.0); PLATELET COUNT (AUTO) 132 /CMM (150-450); RED BLOOD CELL COUNT(AUTO) 4.52 MIL/uL (4.5-6.0); WHITE BLOOD COUNT (AUTO) 4.6 K/uL (4.3-11.0)
[2020-03-19 09:15] LABS: ALBUMIN 3.4 g/dL (3.4-5.0); BILIRUBIN,TOTAL 1.2 mg/dL (0.2-1.0); CALCIUM, SERUM 9.4 mg/dL (8.5-10.1); CREATININE 1.2 mg/dL (0.6-1.3); MAGNESIUM 1.9 mg/dL (1.8-2.4); PHOSPHORUS 2.4 mg/dL (2.5-4.9); POTASSIUM 3.2 mmol/L (3.5-5.1); TOTAL PROTEIN, SERUM 7.6 g/dL (6.4-8.2)
--- NOTE | 2020-03-19 10:00 | NUR ---
tele correctional officer chief: notes in bed awake, a/ox4. no distress noted. will continue to monitor.
[2020-03-19 12:00] VITALS: BP 125/79
--- NOTE | 2020-03-19 12:00 | NUR ---
tele night filler: cardio seen by dr. chamorro at this time.
--- NOTE | 2020-03-19 14:45 | NUR ---
tele cotton breeder: md visit seen by dr. garcia with order to d'c back to board and care. israel (silvano) aware and will send pt via taxi with voucher.
[2020-03-19] MEDS: CYANOCOBALAMIN 100 MCG TABLET PO SCH ×2 (14:54→15:30)
--- NOTE | 2020-03-19 15:15 | NUR ---
tele shut off worker: notes discharge instructions given and verbalized understanding. h/l and tele removed. pt request for ativan prior to discharge. pt to go home via taxi with voucher. pt aware.
[2020-03-19] MEDS ORDERED: NEUTRA PHOS 1 POWD.PACKET PO ONE (15:30)
--- NOTE | 2020-03-19 15:30 | NUR ---
tele resource director: notes ativan 2mg po given for anxiety. needs attended. pt stable for discharge. all valuables returned to pt. awaiting for taxi.
--- NOTE | 2020-03-19 16:05 | NUR ---
tele palletizer: discharged discharge back to board and care via taxi with voucher in stable condition.
== END 2020-03-19 16:05 | disposition home or self-care (01) | DRG 243 ==
LOC: ER 03:13 → TELE1 08:23 → TELE 03-18 15:55
PROVIDERS: ADMIT Nurse Practitioner Acute Care; ATTEND Nurse Practitioner Acute Care
DX: K21.9 Gastro-esophageal reflux disease without esophagitis (principal); K74.60 Unspecified cirrhosis of liver; M94.0 Chondrocostal junction syndrome [Tietze]; F10.239 Alcohol dependence with withdrawal, unspecified; G40.909 Epilepsy, unspecified, not intractable, without status epilepticus; I10 Essential (primary) hypertension; Z91.010 Allergy to peanuts; Z79.899 Other long term (current) drug therapy; I49.8 Other specified cardiac arrhythmias; F10.229 Alcohol dependence with intoxication, unspecified; Y90.9 Presence of alcohol in blood, level not specified; I48.91 Unspecified atrial fibrillation; Z86.59 Personal history of other mental and behavioral disorders; Z86.73 Personal history of transient ischemic attack (TIA), and cerebral infarction without residual deficits; F17.200 Nicotine dependence, unspecified, uncomplicated; Z91.19 Patient's noncompliance with other medical treatment and regimen
CPT/HCPCS: 36415; 71045-TC; 80048-TC; 80053-TC; 80061-TC; 80076-TC; 83690-TC; 83735-TC; 84100-TC; 84484-TC; 85025-TC; 85730-TC; 87081-TC; C9803; G0378; J2060; J2270; J2405; J3490; J7030; U0003

== ENCOUNTER 2020-04-01 09:29 | Emergency (ER) | payer OTHER ==
[~2020-04-01] VITALS: Ht 172.7 cm; Wt 63.5 kg
--- NOTE | 2020-04-01 09:41 | NUR ---
BIBRA60 HOME FEELING WEAK, UNABLE TO EAT. "ANXIOUS" ALL MORNING, TO ER BED 10, HOOKED TO UTILIZATION SPECIALIST, BP CUFF AND POX. CHANGED TO HOSP GOWN, WARM BLANKET PROVIDED, PATIENT AAO x 4, BREATHING EVEN AND UNLABORED, NAD NOTED. AWAITING MD ESPANA.
--- NOTE | 2020-04-01 09:50 | NUR ---
dr ramirez at bedside
[2020-04-01] MEDS ORDERED: ONDANSETRON HCL/PF 4 MG/2 ML VIAL IVP ONE (10:00)
[2020-04-01] MEDS ORDERED: IV NS 0.9% 1,000 ML BAG IV ONE ×2 (10:00)
[2020-04-01] MEDS ORDERED: LORAZEPAM INJ 2 MG/ML VIAL IV ONE (10:00)
[2020-04-01] MEDS ORDERED: ONDANSETRON HCL/PF 4 MG/2 ML VIAL ONE (10:28)
[2020-04-01] MEDS ORDERED: LORAZEPAM INJ 2 MG/ML VIAL ONE (10:28)
--- NOTE | 2020-04-01 10:44 | NUR ---
UNABLE TO START IV PERIPHERAL LINE. MADE AWARE
--- NOTE | 2020-04-01 10:50 | NUR ---
WHEELMAN NOT ABLE TO COLLECT BLOOD WELL.
[2020-04-01] MEDS ORDERED: ONDANSETRON HCL/PF - ER 4 MG/2 ML VIAL IM ONE (11:00)
[2020-04-01] MEDS ORDERED: LORAZEPAM INJ 2 MG/ML VIAL IM ONE (11:00)
[2020-04-01 11:38] LABS: BASOPHILS % (AUTO) 0.3 % (0.0-2.0); HEMATOCRIT 32 % (39-51); HEMOGLOBIN 10.4 g/dL (13.5-17.5); LYMPHOCYTES # (AUTO) 0.7 /CMM (0.8-4.8); MEAN CORPUSCULAR HGB CONC 33 g/dl (31.0-36.0); MEAN CORPUSCULAR VOLUME 91 fL (80-96); MONOCYTES # (AUTO) 0.1 /CMM (0.1-1.30); MONOCYTES % (AUTO) 2.4 % (2.0-12.0); NEUTROPHILS # (AUTO) 4.2 /CMM (1.8-8.9); NEUTROPHILS % (AUTO) 83.3 % (43.0-81.0); PLATELET COUNT (AUTO) 154 /CMM (150-450); RED BLOOD CELL COUNT(AUTO) 3.48 MIL/uL (4.5-6.0); WHITE BLOOD COUNT (AUTO) 5.1 K/uL (4.3-11.0)
[2020-04-01 11:55] LABS: ALANINE AMINOTRANSFERASE 45 U/L (12-78); ALBUMIN 3.6 g/dL (3.4-5.0); ALCOHOL, BLOOD 40 mg/dL (0-0); ALKALINE PHOSPHATASE 119 U/L (46-116); ASPARTATE AMINOTRANSFERASE 84 U/L (15-37); BILIRUBIN,DIRECT 0.4 mg/dL (0.0-0.2); BILIRUBIN,TOTAL 0.9 mg/dL (0.2-1.0); CALCIUM, SERUM 8.6 mg/dL (8.5-10.1); CARBON DIOXIDE 21 mmol/L (21-32); CHLORIDE 99 mmol/L (98-107); CREATININE 1.1 mg/dL (0.6-1.3); GLUCOSE 156 mg/dL (74-106); POTASSIUM 4.8 mmol/L (3.5-5.1); SODIUM SERUM 140 mmol/L (136-145); UREA NITROGEN, BLOOD 46 mg/dL (7-18)
[2020-04-01 12:00] LABS: ACETAMINOPHEN < 2 ug/ml (10-30)
--- NOTE | 2020-04-01 12:53 | NUR ---
IV removed. Catheter intact and site benign. Pressure and 4x4 applied to site. No bleeding noted.Patient discharged to home in stable condition. Written and verbal after care instructions given. Patient verbalizes understanding of instruction. Assisted to waiting room to wait for his cab.
[2020-04-01 12:55] VITALS: BP 114/60
== END 2020-04-01 12:56 | disposition home or self-care (01) ==
LOC: ER 09:32
DX: F41.9 Anxiety disorder, unspecified (principal); I10 Essential (primary) hypertension; I48.91 Unspecified atrial fibrillation; Z91.010 Allergy to peanuts; Z79.899 Other long term (current) drug therapy; Z86.73 Personal history of transient ischemic attack (TIA), and cerebral infarction without residual deficits
CPT/HCPCS: 36415; 80048; 80076; 80299; 80320; 85025; 93005; 96360; 96372 ×2; 99284; J2060; J2405; J7030; G0480

== ENCOUNTER 2020-04-11 08:39 | Inpatient (IN) | payer OTHER ==
[~2020-04-11] VITALS: Ht 177.8 cm; Wt 74.8 kg
--- NOTE | 2020-04-11 10:32 | NUR ---
PILAR FROM HOME TO ER BED 12. AAOX4. NOT IN RESP DISTRESS, BREATHING EVEN AND UNLABORED. AMBULATORY. BROUGHT ON FOR R FLANK PAIN A R LOWER ABD PAIN STARTED THIS MORNING 8/10 SHARP TO DULL IN NATURE. DENIES N/V/D. WAS AT THE BEDSIDE FOR EVAL. ORDERS RECEIVED, NOTED AND CARRIED OUT. IV LINE ESTABLISHED OM R HAND 20G, BLOOD DRAWNA ND GIVEN TO RECORDS MANAGEMENT ANALYST AT BEDSIDE. URINE SENT TO LAB
[2020-04-11 10:42] LABS: EOSINOPHILS % (AUTO) 0.1 % (0.0-6.0); MONOCYTES # (AUTO) 0.8 /CMM (0.1-1.30); NEUTROPHILS % (AUTO) 71.5 % (43.0-81.0); RED BLOOD CELL COUNT(AUTO) 2.56 MIL/uL (4.5-6.0)
[2020-04-11 10:47] LABS: BASOPHILS # (AUTO) 0.1 /CMM (0.0-0.2); BASOPHILS % (AUTO) 0.8 % (0.0-2.0); HEMATOCRIT 24 % (39-51); HEMOGLOBIN 7.5 g/dL (13.5-17.5); LYMPHOCYTES # (AUTO) 1.1 /CMM (0.8-4.8); LYMPHOCYTES % (AUTO) 15.8 % (20.0-44.0); MEAN CORPUSCULAR HGB CONC 32 g/dl (31.0-36.0); MEAN CORPUSCULAR VOLUME 93 fL (80-96); MONOCYTES % (AUTO) 11.8 % (2.0-12.0); NEUTROPHILS # (AUTO) 4.9 /CMM (1.8-8.9); PLATELET COUNT (AUTO) 285 /CMM (150-450); WHITE BLOOD COUNT (AUTO) 6.8 K/uL (4.3-11.0)
[2020-04-11 10:50] LABS: CALCIUM, SERUM 8.8 mg/dL (8.5-10.1); CARBON DIOXIDE 26 mmol/L (21-32); CHLORIDE 98 mmol/L (98-107); GLUCOSE 112 mg/dL (74-106); POTASSIUM 4.5 mmol/L (3.5-5.1); SODIUM SERUM 134 mmol/L (136-145); UREA NITROGEN, BLOOD 17 mg/dL (7-18)
[2020-04-11] MEDS ORDERED: LORAZEPAM 0.5 MG TABLET ONE (11:58)
[2020-04-11] MEDS ORDERED: MAG HYDROX/AL HYDROX/SIMETH 30 ML UDC PO ONE (12:00)
[2020-04-11] MEDS ORDERED: LIDOCAINE VISCOUS 2% UD 15 ML UDC MM ONE (12:00)
[2020-04-11] MEDS ORDERED: LORAZEPAM 0.5 MG TABLET PO ONE (12:00)
[2020-04-11] MEDS ORDERED: PANTOPRAZOLE 40 MG VIAL IV ONE (12:00)
[2020-04-11] MEDS ORDERED: MAG HYDROX/AL HYDROX/SIMETH 30 ML UDC ONE (12:07)
[2020-04-11] MEDS ORDERED: PANTOPRAZOLE 40 MG VIAL ONE ×2 (12:07→23:46)
[2020-04-11] MEDS ORDERED: LIDOCAINE VISCOUS 2% UD 15 ML UDC ONE (12:07)
[2020-04-11 12:48] LABS: BILIRUBIN,DIRECT 0.3 mg/dL (0.0-0.2); BILIRUBIN,TOTAL 0.8 mg/dL (0.2-1.0); TOTAL PROTEIN, SERUM 7.1 g/dL (6.4-8.2)
[2020-04-11] MEDS ORDERED: IPRA4AER INH (13:19)
--- NOTE | 2020-04-11 13:37 | NUR ---
PT IS HARD STICK. ORDERED MID LINE PER MD
[2020-04-11 23:05] LABS: EOSINOPHILS % (AUTO) 0.3 % (0.0-6.0); LYMPHOCYTES # (AUTO) 0.9 /CMM (0.8-4.8); MEAN CORPUSCULAR HGB CONC 32 g/dl (31.0-36.0); MEAN CORPUSCULAR VOLUME 93 fL (80-96); MONOCYTES # (AUTO) 0.5 /CMM (0.1-1.30); MONOCYTES % (AUTO) 13.7 % (2.0-12.0); NEUTROPHILS # (AUTO) 2.2 /CMM (1.8-8.9); PLATELET COUNT (AUTO) 227 /CMM (150-450); RED BLOOD CELL COUNT(AUTO) 2.09 MIL/uL (4.5-6.0); WHITE BLOOD COUNT (AUTO) 3.6 K/uL (4.3-11.0)
[2020-04-11 23:10] LABS: HEMATOCRIT 19 % (39-51); HEMOGLOBIN 6.2 g/dL (13.5-17.5)
[2020-04-11] MEDS ORDERED: ZOLPIDEM TARTRATE 5 MG TABLET PO PRN (23:30)
[2020-04-11] MEDS ORDERED: HYDROCODONE/APAP 5/325MG TABLET PO PRN (23:30)
[2020-04-11] MEDS ORDERED: ACETAMINOPHEN 325 MG TABLET PO PRN (23:30)
[2020-04-11] MEDS ORDERED: MAGNESIUM HYDROXIDE 30 ML UDC PO PRN (23:30)
--- NOTE | 2020-04-11 23:32 | NUR ---
BLOOD CONSENT FORM SIGNED BY THE PATIENT.
[2020-04-11] MEDS: IV NS 0.9% 1,000 ML IV PRN (23:33)
[2020-04-11] MEDS ORDERED: LORAZEPAM INJ 2 MG/ML VIAL ONE (23:46)
[2020-04-11] MEDS ORDERED: OCTREOTIDE 100 MCG/ML VIAL ONE (23:46)
[2020-04-11 23:47] LABS: BAND % (MANUAL) 1 % (0.0-5.0); LYMPHOCYTES % (MANUAL) 30 % (16-48); MONOCYTES % (MANUAL) 14 % (0-11.0); NEUTROPHILS % (MANUAL) 55 (42-76)
[2020-04-11] MEDS: PANTOPRAZOLE 40 MG VIAL IV SCH (23:50)
[2020-04-11] MEDS: LORAZEPAM INJ 2 MG/ML VIAL IV PRN (23:50)
--- NOTE | 2020-04-11 23:52 | NUR ---
called pharmacy to verify new orders
[2020-04-12] MEDS ORDERED: OCTREOTIDE 500 MCG in IV NS 0.9% 99 ML IV PRN ×2
[2020-04-12] MEDS ORDERED: OCTREOTIDE 50 MCG in IV NS 0.9% 50 ML IJ ONE ×2
--- NOTE | 2020-04-12 01:06 | NUR ---
LAB CALLED REGARDING NEGATIVE COVID RESULT.
--- NOTE | 2020-04-12 02:05 | NUR ---
STARTED ON BLOOD TRANSFUSION.
--- NOTE | 2020-04-12 03:54 | NUR ---
blood transfusion complete. No blood transfusion reaction. Patient tolerated blood transfusion well.
[2020-04-12 04:45] LABS: BASOPHILS % (AUTO) 0.7 % (0.0-2.0); EOSINOPHILS % (AUTO) 0.3 % (0.0-6.0); HEMATOCRIT 23 % (39-51); HEMOGLOBIN 7.3 g/dL (13.5-17.5); MEAN CORPUSCULAR HGB CONC 31 g/dl (31.0-36.0); MEAN CORPUSCULAR VOLUME 95 fL (80-96); MONOCYTES # (AUTO) 0.4 /CMM (0.1-1.30); MONOCYTES % (AUTO) 12.1 % (2.0-12.0); NEUTROPHILS # (AUTO) 1.7 /CMM (1.8-8.9); NEUTROPHILS % (AUTO) 54.9 % (43.0-81.0); PLATELET COUNT (AUTO) 228 /CMM (150-450); RED BLOOD CELL COUNT(AUTO) 2.45 MIL/uL (4.5-6.0); WHITE BLOOD COUNT (AUTO) 3.2 K/uL (4.3-11.0)
--- NOTE | 2020-04-12 05:00 | NUR ---
2nd blood bag given.
[2020-04-12 05:02] LABS: CALCIUM, SERUM 8.2 mg/dL (8.5-10.1); CREATININE 0.9 mg/dL (0.6-1.3); MAGNESIUM 2.1 mg/dL (1.8-2.4); PHOSPHORUS 3.4 mg/dL (2.5-4.9); POTASSIUM 4.5 mmol/L (3.5-5.1)
[2020-04-12] MEDS ORDERED: OCTREOTIDE 500 MCG/ML VIAL ONE (05:09)
--- NOTE | 2020-04-12 06:29 | NUR ---
2nd blood bag finished. no blood transfusion reaction noted. patient is breathing evenly and unlabored on room air. Site of transfusion is norm[place]kin color is consistent with patient's race.
[2020-04-12] MEDS ORDERED: LORAZEPAM INJ 2 MG/ML VIAL ONE (06:36)
--- NOTE | 2020-04-12 07:35 | NUR ---
REPORT GIVEN TO JERRY DESAI FOR RO.
[2020-04-12] MEDS ORDERED: MORPHINE SULFATE INJ 2 MG/ML DISP.SYRIN IV PRN (08:00)
[2020-04-12] MEDS ORDERED: PANTOPRAZOLE 40 MG VIAL ONE (08:30)
[2020-04-12] MEDS ORDERED: ONDANSETRON HCL/PF 4 MG/2 ML VIAL ONE (08:30)
[2020-04-12] MEDS: PANTOPRAZOLE 40 MG VIAL IV SCH ×2 (08:41→20:58)
[2020-04-12] MEDS: ONDANSETRON HCL/PF 4 MG/2 ML VIAL IVP PRN ×2 (08:42→15:54)
--- NOTE | 2020-04-12 09:42 | NUR ---
PATIENT PREPPED FOR EGD. CONSENTS SIGNED. PATIENT'S VITALS STABLE. NEEDS ATTENDED. NO DISTRESS NOTED.
[2020-04-12] MEDS ORDERED: ALBUTEROL 17GM INHALER ONE (10:14)
--- NOTE | 2020-04-12 10:23 | NUR ---
PATIENT A/OX4, TAKEN TO SURGERY FOR EGD. VITALS STABLE.
[2020-04-12 11:00] VITALS: BP 145/83
--- NOTE | 2020-04-12 11:07 | NUR ---
RN ADMITTING NOTE Patient transferred from OR s/p EGD with Dr. Newton, patient is a/o x4, showing no signs of acute distress or SOB, saturating 99% on RA. JARVIS midline is in place flushing well. Per Donal POLLS OR SURVEYS INTERVIEWER to start patient on clear liquid diet and DC octreotide drip. Bed is in lowest position, side rails x2 in upright position, call light is within reach, fall safety and aspiration precautions enforced. Will continue with admitting orders.
[2020-04-12] MEDS: IV NS 0.9% 1,000 ML IV PRN (11:41)
[2020-04-12] MEDS: LORAZEPAM INJ 2 MG/ML VIAL IV PRN ×2 (11:44→18:13)
[2020-04-12] MEDS: SUCRALFATE 1 G/10 ML UDC PO SCH ×3 (11:44→22:06)
[2020-04-12 16:00] VITALS: BP 139/78
--- NOTE | 2020-04-12 18:47 | NUR ---
RN/CLOSING NOTES PATIENT IN BED. A/O X4. AFEBRILE. IN NO APPARENT DISTRESS. ON CLEAR LIQUID DIET. WITH JARVIS MIDLINE. SAFETY MEASURES PROVIDED. BED IN LOWEST POSITION, LOCKED. SIDE RAILS UP X 2. CALL LIGHT WITHIN REACH. WILL ENDORSE TO OIL EXTRACTOR FOR RO.
--- NOTE | 2020-04-12 19:45 | NUR ---
MS RN NOTE: PATIENT RESTING IN BED, NO ACUTE DISTRESS NOTED. BREATHING EVEN AND UNLABORED, NO SOB NOTED. MIDLINE TO JARVIS IN PLACE. BED LOCKED AND IN LOWEST POSITION, CALL LIGHT IN REACH. WILL CONTINUE TO MONITOR.
[2020-04-12 20:00] VITALS: BP_SYST 110; BP_SYST 155; BP_DIAS 43; BP_DIAS 77
[2020-04-13] MEDS: LORAZEPAM INJ 2 MG/ML VIAL IV PRN ×2 (00:16→10:50)
--- NOTE | 2020-04-13 00:20 | NUR ---
MS RN NOTE: PATIENT COMPLAINS OF ANXIETY AND REQUESTING FOR ATIVAN. ATIVAN 2MG IV GIVEN PER MD ORDER. WILL CONTINUE TO MONITOR.
--- NOTE | 2020-04-13 07:22 | NUR ---
MS RN OPENING NOTES RECEIVED PATIENT RESTING IN BED AWAKE, A/OX4. ON RA BREATHING EVEN AND UNLABORED WITH NO S/S OF ACUTE RESPIRATORY DISTRESS NOTED. PATIENT C/O PAIN TO ABD / CHEST AREA 11/20. PAIN MED WILL BE GIVEN. IV TO JARVIS MIDLINE NS @100 ML/HR RUNNING. IV PATENT AND INTACT FLUSHING WELL. BED AT LOWEST POSITION AND LOCKED WITH SIDE RAILS UP x2 AND CALL LIGHT WITH IN REACH. ALL SAFETY MEASURES IN PLACE, WILL CONTINUE TO MONITOR PATIENT THROUGH SHIFT.
[2020-04-13] MEDS: SUCRALFATE 1 G/10 ML UDC PO SCH ×2 (07:44→12:15)
[2020-04-13 08:00] VITALS: BP 128/69
--- NOTE | 2020-04-13 08:00 | NUR ---
received pt. in am,alert and oriented x2-3 with sluggish affect. vs stable.side rails up. call banks within reach.
[2020-04-13] MEDS: PANTOPRAZOLE 40 MG VIAL IV SCH (08:12)
[2020-04-13 09:22] LABS: CALCIUM, SERUM 8.3 mg/dL (8.5-10.1); CREATININE 1.1 mg/dL (0.6-1.3); POTASSIUM 3.8 mmol/L (3.5-5.1)
[2020-04-13 09:39] LABS: BASOPHILS # (AUTO) 0.1 /CMM (0.0-0.2); BASOPHILS % (AUTO) 1.5 % (0.0-2.0); EOSINOPHILS % (AUTO) 1.1 % (0.0-6.0); HEMATOCRIT 33 % (39-51); HEMOGLOBIN 9.6 g/dL (13.5-17.5); LYMPHOCYTES # (AUTO) 0.9 /CMM (0.8-4.8); LYMPHOCYTES % (AUTO) 24.9 % (20.0-44.0); MEAN CORPUSCULAR HGB CONC 30 g/dl (31.0-36.0); MEAN CORPUSCULAR VOLUME 101 fL (80-96); MONOCYTES # (AUTO) 0.3 /CMM (0.1-1.30); MONOCYTES % (AUTO) 7.1 % (2.0-12.0); NEUTROPHILS # (AUTO) 2.4 /CMM (1.8-8.9); NEUTROPHILS % (AUTO) 65.4 % (43.0-81.0); PLATELET COUNT (AUTO) 211 /CMM (150-450); RED BLOOD CELL COUNT(AUTO) 3.21 MIL/uL (4.5-6.0); WHITE BLOOD COUNT (AUTO) 3.7 K/uL (4.3-11.0)
--- NOTE | 2020-04-13 10:50 | NUR ---
given ativan injection for nervousness.
--- NOTE | 2020-04-13 11:30 | NUR ---
scar nickerson in dc order given,pt. with rx's.
--- NOTE | 2020-04-13 15:00 | NUR ---
lt. upper arm midline out. dressing to site.given all dc instructions along with rx's.taken to lobby via w/c accompanied by harp maker.taxi here to transport pt. to board and care.
== END 2020-04-13 15:05 | disposition home or self-care (01) | DRG 241 ==
LOC: ER 09:14 → TRANSITION 17:43 → MED 04-12 10:45
PROVIDERS: ADMIT Nurse Practitioner Acute Care; ATTEND Nurse Practitioner Acute Care
PROC: 30233N1 Transfusion of Nonautologous Red Blood Cells into Peripheral Vein, Percutaneous Approach (ICD-10-PCS; principal; 2020-04-11)
PROC: 0DB68ZX Excision of Stomach, Via Natural or Artificial Opening Endoscopic, Diagnostic (ICD-10-PCS; 2020-04-12)
DX: K26.9 Duodenal ulcer, unspecified as acute or chronic, without hemorrhage or perforation (principal); N17.9 Acute kidney failure, unspecified; E87.1 Hypo-osmolality and hyponatremia; K20.90 Esophagitis, unspecified without bleeding; K29.70 Gastritis, unspecified, without bleeding; Z86.73 Personal history of transient ischemic attack (TIA), and cerebral infarction without residual deficits; I48.91 Unspecified atrial fibrillation; Z91.010 Allergy to peanuts; Z79.51 Long term (current) use of inhaled steroids; Z79.899 Other long term (current) drug therapy; I10 Essential (primary) hypertension; F17.210 Nicotine dependence, cigarettes, uncomplicated; D64.9 Anemia, unspecified; E44.0 Moderate protein-calorie malnutrition
CPT/HCPCS: 36415; 71045-TC; 80048-TC; 80061-TC; 80076-TC; 83735-TC; 84100-TC; 84484-TC; 85025-TC; 85610-TC; 85730-TC; 86850-TC; 87081-TC; 88305-TC; 88313-TC; 88342; C9113; G0378; G0480; J2001; J2060; J2270; J2354; J2405; J2704; J3490; J7030; J7050; P9016-BL